=== PATIENT | female | born 1980 ===

== ENCOUNTER 2016-05-08 22:00 | Inpatient (IN) | payer MEDICAID ==
[~2016-05-08] VITALS: Ht 149.9 cm; Wt 57.6 kg
[2016-05-11] MEDS ORDERED: PRENATAL VIT1 TAB PO (19:30)
[2016-05-11] MEDS ORDERED: COLACE-DPS100 MG PO (19:31)
[2016-05-11] MEDS ORDERED: MOTRIN-DPS800 MG PO (19:31)
--- NOTE | 2016-05-19 07:23 | HP ---
ADMIT: 05/08/2016 RM/LOC: 219 [facility] MR#: [id number] [address] [place] [id number] CARMEL MORALES [address] [place] [address] History and Physical SEX: F AGE: 35 : 1980 DATE OF SERVICE: REASON FOR ADMISSION: Contractions. HISTORY OF PRESENT ILLNESS: The patient is a 35-year-old, 4, para 3-0- 0-3, who presented to Labor and Delivery at 38-4/7th weeks' gestation by last menstrual period with estimated date of confinement 05/19/2016. The patient's was complicated by late entry to care and anemia of . At the time of admission, the patient was noted to be bharti regularly. She denied any vaginal bleeding or loss of fluid. LABORATORY DATA: Blood type O positive, antibody screen negative, HIV negative, rubella immune, hep B surface antigen negative, RPR nonreactive, Gonorrhea and Chlamydia negative, and normal 1-hour glucose tolerance test. PAST MEDICAL HISTORY: History of diabetes in previous . PAST SURGICAL HISTORY: None. CURRENT MEDICATIONS: vitamins daily. ALLERGIES: NO KNOWN MEDICAL ALLERGIES. SOCIAL HISTORY: The patient is . She denies any alcohol, tobacco, or drug use. FAMILY HISTORY: None. PHYSICAL EXAMINATION: VITAL SIGNS: On admission, vital signs are stable. The patient is afebrile. GENERAL: The patient is alert and oriented, in no acute distress. HEART: Regular rate and rhythm without murmurs, gallops, or rubs. LUNGS: Clear to auscultation bilaterally. ADMIT: 05/08/2016 RM/LOC: 219 [facility] MR#: [id number] [address] [place], [place] [id number] CARMEL MORALES [address] [place] [address] History and Physical SEX: F AGE: 35 : 1980 ABDOMEN: Soft, nontender, gravid. EXTREMITIES: No edema. No calf tenderness. heart tones are in the 130s with moderate variability and accelerations present. Contractions every 2 to 4 minutes. Cervix on admission 8 cm dilated, 90% effaced, and 0 station. ASSESSMENT AND PLAN: 1. A 35-year-old, 4, para 3-0-0-3, at 38-4/7th weeks' gestation. 2. Active labor. Plan to admit in Labor and anticipate a spontaneous vaginal delivery. 3. Anemia of . Candace Banegas MD/ naif JOB #: [id number] CC: Kelly Khan, Attending Physician Kelly Khan, Family Physician
--- NOTE | 2016-06-01 12:57 | DS ---
ADMIT: 05/08/2016 RM/LOC: 219 [facility] MR#: [id number] [id number] [facility] [address] [place] [address] General Discharge Summary SEX: F AGE: 35 : 1980 ADMISSION DATE: 05/08/2016 DISCHARGE DATE: 05/10/2016 DISCHARGE DIAGNOSES: 1. Status post spontaneous vaginal delivery. 2. Late entry to care. 3. Anemia during . 4. Umbilical hernia. PROCEDURE: Spontaneous vaginal delivery. Kelly Khan MD/ naif JOB #: [id number] CC: Candace Banegas MD, Attending Physician Kelly Khan MD, Family Physician
--- NOTE | 2016-06-09 09:00 | OR ---
ADMIT: 05/08/2016 RM/LOC: 219 [facility] MR#: [id number] [address] [place] [id number] CARMEL MORALES [address] [place] [address] Operative/Delivery Room Report SEX: F AGE: 35 : 1980 SURGERY DATE: 05/08/2016 SURGEON: Candace Banegas MD NAME OF PROCEDURE: Spontaneous vaginal delivery. PREOPERATIVE DIAGNOSES: 1. Intrauterine at 38 and 4/7th weeks' gestation. 2. Active labor. 3. Anemia of . 4. Late entry to care. POSTOPERATIVE DIAGNOSES: 1. Intrauterine at 38 and 4/7th weeks' gestation. 2. Active labor. 3. Anemia of . 4. Late entry to care. FINDINGS: Liveborn male , scores 8 at 1 minute, 9 at 5 minutes, weight 7 pounds 3 ounces. ESTIMATED BLOOD LOSS: 150 mL. ANESTHESIA: None. COMPLICATIONS: None. INDICATIONS FOR PROCEDURE: The patient is a 35-year-old, 4, para 3-0- 0-3, who presented to Labor and Delivery with complaints of contractions. The patient was noted to be 8 cm dilated on admission. The patient then progressed through labor to completely dilated and pushed, bringing the infant's vertex to the perineum. DESCRIPTION OF PROCEDURE: The patient was noted to be complete with the vertex at the perineum. The patient pushed and the 's vertex delivered in the ANDREA position over midline. Due to position on the bed delivering the shoulders somewhat difficult and so the patient was placed in Ciara ADMIT: 05/08/2016 RM/LOC: 219 [facility] MR#: [id number] [address] [place] [id number] CARMEL MORALES [address] [place] [address] Operative/Delivery Room Report SEX: F AGE: 35 : 1980 position and the anterior shoulder delivered, the posterior shoulder followed and remainder of the infant without difficulty as well. The infant was dried and handed off to the mother's abdomen. There was noted to be a short umbilical cord. The cord was clamped and cut, and was noted to have 2 arteries and 1 vein. The infant was handed off to the mother's abdomen where nursing personnel were in attendance. 20 units of Pitocin have been placed in IV bag to firm the uterus. The placenta then delivered intact. Cervix was examined and was noted to be free of lacerations. The vaginal vault and perineum were examined and there was noted to be free of lacerations. The patient tolerated the procedure well. All sponge and needle counts were correct. The patient and her recovered in the room in stable condition. Candace Banegas MD/ naif JOB #: [id number] CC: Kelly Khan, Attending Physician Kelly Khan, Family Physician
== END 2016-05-10 13:15 | disposition home or self-care (01) | DRG 775 ==
LOC: BC 22:00 → 2LDRP 22:00 → BC 05-19 08:00
PROVIDERS: ADMIT Obstetrics & Gynecology
PROC: 10E0XZZ Delivery of Products of Conception, External Approach (ICD-10-PCS; principal; 2016-05-08)
DX: O80 Encounter for full-term uncomplicated delivery (principal); Z37.0 Single live birth; Z3A.38 38 weeks gestation of pregnancy